=== PATIENT | male | born 1960 | race Caucasian/White ===

== ENCOUNTER → 2021-01-09 | Outpatient (CLI) | payer MEDICARE ==
[~2021-01-09] MED LIST: ASPIRIN EC81 MG PO; ATORVASTATIN CA20 MG PO; COPPER2 MG PO; GLUTAMINE MC; LOPRESSOR 25 MG25 MG PO; NEURONTIN100 MG PO; NORVASC2.5 MG PO; NOVOLIN N100 UNIT/1 SQ; NOVOLIN R100 UNIT/1 SQ; VASOTEC2.5 MG PO; VITAMIN C1500 MG PO; ZINC50 M2 PO
== END ==
LOC: HEART CORB 10:00
DX: I25.10 Atherosclerotic heart disease of native coronary artery without angina pectoris (principal); I50.9 Heart failure, unspecified; R06.02 Shortness of breath; I08.3 Combined rheumatic disorders of mitral, aortic and tricuspid valves
CPT/HCPCS: 93306

== ENCOUNTER → 2021-05-15 | Outpatient (CLI) | payer MEDICARE | LOC: HEART CORB 13:30 | DX: I25.5 Ischemic cardiomyopathy (principal); I77.819 Aortic ectasia, unspecified site; I51.89 Other ill-defined heart diseases ==